=== PATIENT | female | born 1965 | race Hispanic/Latino ===

== ENCOUNTER 2017-12-08 12:22 | Day surgery (SDC) | payer BC ==
[~2017-12-08] VITALS: Ht 149.9 cm; Wt 69.9 kg
[2017-12-08] MEDS ORDERED: LOSARTAN POTASS50 MG PO (12:37)
[2017-12-08] MEDS ORDERED: AMLODIPINE (12:37)
[2017-12-08] MEDS ORDERED: PROTONIX (12:38)
[2017-12-08 12:58] LABS: HEMATOCRIT 49.3 % (37.0-47.0); HEMOGLOBIN 16.3 g/dl (12.0-16.0); IMMATURE GRANULOCYTES 0.3 % (0.0-1.0); MEAN CELL VOLUME 83.7 fL CALC (80.0-100.0); MEAN CORPUSCULAR HGB 27.7 pG CALC (26.0-32.0); MEAN CORPUSCULAR HGB CONC 33.1 g/L CALC (32.0-36.0); NEUT# 3.7 thou/uL (2.00-7.15); RED BLOOD COUNT 5.89 mill/uL (4.20-5.60); RED CELL DISTRI WIDTH 12.9 % (11.5-15.5)
[2017-12-08 13:45] LABS: ANION GAP 18 (6-22 (CALC)); BUN 12 mg/dL (7-17); BUN/CREATININE RATIO 18 (12-20 (CALC)); CARBON DIOXIDE 26 mmol/l (22-30); CHLORIDE 104 mmol/l (95-108); CREATININE 0.7 mg/dL (0.5-1.0); GFR > 60 ML/MIN (>=60 (CALC)); GFR FOR AFR.AMER. > 60 ML/MIN (>=60 (CALC)); SODIUM 144 mmol/l (137-146)
[2017-12-08] MEDS ORDERED: PERCOCET 5/325M1 TAB PO (15:21)
[2017-12-08 16:19] VITALS: BP 115/71
== END 2017-12-08 16:15 | disposition home or self-care (01) | DRG 352 ==
LOC: ORM 12:22 → ENDO 12-15 09:30
PROVIDERS: Nurse Anesthetist, Certified Registered; ATTEND Surgery
PROC: 0YU50JZ Supplement Right Inguinal Region with Synthetic Substitute, Open Approach (ICD-10-PCS; principal; 2017-12-08)
PROC: 0DJD8ZZ Inspection of Lower Intestinal Tract, Via Natural or Artificial Opening Endoscopic (ICD-10-PCS; 2017-12-08)
DX: K40.90 Unilateral inguinal hernia, without obstruction or gangrene, not specified as recurrent (principal); Z12.11 Encounter for screening for malignant neoplasm of colon; K57.30 Diverticulosis of large intestine without perforation or abscess without bleeding; K63.5 Polyp of colon
CPT/HCPCS: J1100

== ENCOUNTER 2017-12-22 10:08 | Day surgery (SDC) | payer BC ==
[~2017-12-22] VITALS: Ht 149.9 cm; Wt 70.8 kg
[~2017-12-22 10:08] MED LIST: AMLODIPINE; LOSARTAN POTASS50 MG PO; PERCOCET 5/325M1 TAB PO; PROTONIX
[2017-12-22] MEDS ORDERED: PERCOCET 5/325M1 TAB PO ×2 (12:53→12:54)
[2017-12-22 13:22] VITALS: BP 138/78
== END 2017-12-22 13:35 | disposition home or self-care (01) | DRG 352 ==
LOC: PO 10:08 → ORM 10:08
PROVIDERS: ATTEND Surgery
PROC: 0YU60JZ Supplement Left Inguinal Region with Synthetic Substitute, Open Approach (ICD-10-PCS; principal; 2017-12-22)
DX: K40.90 Unilateral inguinal hernia, without obstruction or gangrene, not specified as recurrent (principal)